=== PATIENT | male | born 1995 | race Two or more races ===

== ENCOUNTER → 2025-07-30 | Outpatient (CLI) | payer OTHER | LOC: M CARPUL 10:44 | PROVIDERS: ATTEND Student in an Organized Health Care Education/Training Program | DX: R07.9 Chest pain, unspecified (principal) ==

== ENCOUNTER → 2025-08-05 | Outpatient (CLI) | payer OTHER | LOC: M PLAIMG 08:54 → EDUNIT# 09-25 08:30 | PROVIDERS: ATTEND Student in an Organized Health Care Education/Training Program | DX: R07.9 Chest pain, unspecified (principal); I34.0 Nonrheumatic mitral (valve) insufficiency; I36.1 Nonrheumatic tricuspid (valve) insufficiency ==